=== PATIENT | female | born 1930 | race Two or more races ===

== ENCOUNTER 2019-10-25 16:12 | Emergency (ER) | payer OTHER ==
[~2019-10-25] VITALS: Ht 157.5 cm; Wt 64.4 kg
[2019-10-25] MEDS ORDERED: COZAAR100 MG (16:29)
== END 2019-10-25 20:26 | disposition home or self-care (01) ==
LOC: ER 16:12
DX: N39.0 Urinary tract infection, site not specified (principal); B96.29 Other Escherichia coli [E. coli] as the cause of diseases classified elsewhere; R31.29 Other microscopic hematuria; R68.83 Chills (without fever)